=== PATIENT | female | born 1985 | race Caucasian/White ===

== ENCOUNTER → 2016-11-09 | Outpatient (CLI) | payer BC ==
[~2016-11-09] MED LIST: ASPI1TAB PO; HYDR-3583 PO; HYDR1CAP2 PO; IBP800T PO; METO25TA2 PO; PROP40TA5 PO
--- NOTE | 2016-11-09 16:48 | Diagnostic Imaging Report ---
PROCEDURE: CT abdomen and pelvis without contrast. TECHNIQUE: Multiple contiguous axial images were obtained through the abdomen and pelvis without the use of intravenous contrast. INDICATION: Microhematuria, evaluate for kidney stones. COMPARISON STUDY: CT of the abdomen and pelvis, March 17, 2011. FINDINGS: The lung bases are clear. The gallbladder is absent. No ductal dilatation is present. The liver, spleen, pancreas, and adrenal glands are normal. The kidneys appear normal. No calculi, hydronephrosis, or masses are seen. There is a tiny fat-containing umbilical hernia without inflammation. The appendix appears normal. An IUD is present in the uterus. Adnexa appear unremarkable. No ascites, free air, or abnormal adenopathy is present. The bowel loops appear normal. The osseous structures are normal. IMPRESSION: 1. There is a fat-containing umbilical hernia which is fairly small. No inflammatory changes are present. 2. The kidneys appear normal. No renal calculi are present. 3. An IUD is in place. Dictated by: Dictated on workstation # [id number]
== END ==
LOC: RAD 16:08
PROVIDERS: ATTEND Urology
DX: R31.29 Other microscopic hematuria (principal)
CPT/HCPCS: 74176